=== PATIENT | male | born 1990 | race Caucasian/White ===

== ENCOUNTER 2016-11-03 15:58 | Emergency (ER) | payer MEDICAID ==
[~2016-11-03] VITALS: Ht 177.8 cm; Wt 81.8 kg
[2016-11-03 16:03] VITALS: BP 108/72
[2016-11-03] MEDS ORDERED: LIDOCAINE HCL 1% 10 ML VIAL INJ ONE (16:45)
[2016-11-03] MEDS ORDERED: BUPIVACAINE HCL 0.5% 50 ML VIAL PERC ONE (16:45)
[2016-11-03] MEDS ORDERED: BUPIVACAINE HCL/PF 0.5% 30 ML VIAL PERC ONE (16:45)
[2016-11-03] MEDS ORDERED: POVIDONE-IODINE 10% 15 ML SOLUTION UD TP ONE (17:00)
== END 2016-11-03 17:48 | disposition home or self-care (01) ==
LOC: EMS 16:01
DX: L03.011 Cellulitis of right finger (principal)
CPT/HCPCS: 10060; 99283; J3490 ×2